=== PATIENT | male | born 1940 | race Caucasian/White ===

== ENCOUNTER 2018-01-06 19:33 | Emergency (ER) | payer MEDICARE, OTHER ==
[2018-01-06] MEDS ORDERED: BUPIVACAINE HCL/PF 5 MG/ML 10ML VIAL IJ ONE (19:43)
--- NOTE | 2018-01-06 20:00 | ED Physician Documentation ---
Facial/Scalp Injury - HISTORIAN Historian: patient - HPI Chief Complaint: Facial Injury Additional Information: he was grinding using a cutoff whhel, and it broke and flew up and hit him above his Right eye brow, lacerating transverse, 5 cm irregular edges. minimal bleeding. no other complaints. No visual complaints. Onset: just prior to arrival Where: home Timing: still present Duration: constant Context: laceration Severity: mild Further Comments: no - ROS CONST: no problems - PAST HX Past History: none Medications: none Allergies: NKDA - SOCIAL HX Smoking History: non-smoker Alcohol Use: none Drug Use: none - FAMILY HX Family History: Yes - REVIEWED ASSESSMENT Nursing Assessment Reviewed: Yes Vitals Reviewed: Yes Procedures Wound Location: face Wound Length: 5cm Wound's Depth, Shape: into muscle, linear, irregular Wound Explored: clean Betadine Prep?: No Anesthesia: 0.5% Sensorcaine Wound Repaired With: sutures Suture Size/Type: 5:0, nylon Number of Sutures: 1 (running) Layer Closure?: No Sterile Dressing Applied?: Yes Splint Applied?: No Sling Applied?: No ED Results Lab/Radiology - Orders Orders: ED Orders Category Date Time Status Bupivacaine HCl/Pf [Marcaine 0.5%] Med 01/06/18 19:43 Once 25 mg IJ NOW ONE Facial Injury Physical Exam - Physical Exam General Appearance: no acute distress, alert Head: trauma (5cm irregular laceration above right eyebrow.) Neck: non-tender Eye: lids nml, conjunctivae nml, EOMI ENT: nml external exam Neuro/Psych: oriented x3 Respiratory: chest non-tender Abdomen: non-tender Skin: intact Extremities: non-tender Discharge Clincal Impression: Laceration of face without complication Qualifiers: Encounter type: initial encounter Qualified Code(s): S01.81XA - Laceration without foreign body of other part of head, initial encounter Referrals: Braeden Stauffer MD [STAFF PHYSICIAN] - 2 Days Condition: Good Disposition: 01 HOME, SELF-CARE Decision to Admit: NO Date of Decison to Admit: 01/06/18 Decision Time: 20:06
[2018-01-06 20:18] VITALS: BP 150/64
== END 2018-01-06 20:10 | disposition home or self-care (01) ==
LOC: ED 19:33
DX: S01.81XA Laceration without foreign body of other part of head, initial encounter (principal); X58.XXXA Exposure to other specified factors, initial encounter; Y92.9 Unspecified place or not applicable; Y93.9 Activity, unspecified; Y99.9 Unspecified external cause status
CPT/HCPCS: 12002; 99283; J3490